=== PATIENT | female | born 2005 | race Caucasian/White ===

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

== ENCOUNTER 2024-05-27 07:08 | Emergency (ER) | payer OTHER ==
[2024-05-27] MEDS ORDERED: IBUPROFEN 400 MG TAB ONE (07:41)
[2024-05-27] MEDS ORDERED: IBUPROFEN 200 MG TAB PO ONE (07:41)
--- NOTE | 2024-05-27 08:01 | ER ---
Nurse's Notes [facility] Name: Linda Caballero Age: 19 yrs Sex: Female : 2005 Arrival Date: 05/27/2024 Time: 07:08 Bed 19 Private MD: Diagnosis: Contusion of right hand;Abrasion of right hand Presentation: 05/27 07:22 Chief complaint: Patient states: R hand pain, bruising and swelling after accidentally ss punching concrete after changing a tire. Injury occurred 3 hours ago. Coronavirus screen: Client denies travel out of the [place] in the last 14 days. Ebola Screen: Patient denies exposure to infectious person. Patient denies travel to an Ebola-affected area in the 21 days before illness onset. Initial Sepsis Screen: Does the patient meet any 2 criteria? No. Patient's initial sepsis screen is negative. Does the patient have a suspected source of infection? No. Patient's initial sepsis screen is negative. Risk Assessment: Do you want to hurt yourself or someone else? Patient reports no desire to harm self or others. Onset of symptoms was May 27, 2024. 07:22 Method Of Arrival: Ambulatory ss 07:22 Acuity: CALISTA 4 ss Historical: - Allergies: 07:24 No Known Allergies; ss - PMHx: 07:24 Reactive arthritis; PTSD; Amplified musculoskeletal pain syndrome; Fibromyalgia; ss Anxiety; - PSHx: 07:24 None; ss - Immunization history:: Client reports receiving the 2nd dose of the Covid vaccine. - Infectious Disease History:: Denies. - Social history:: Smoking status: Patient denies any tobacco usage or history of. - Family history:: not pertinent. Screenin:14 [facility] ED Fall Risk Assessment (Adult) History of falling in the last 3 months, db including since admission No falls in past 3 months (0 pts) Confusion or Disorientation No (0 pts) Intoxicated or Sedated No (0 pts) Impaired Gait No (0 pts) Mobility Assist Device Used No (0 pt) Altered Elimination No (0 pt) Score/Fall Risk Level 0 - 2 = Low Risk Oriented to surroundings, Maintained a safe environment. Abuse screen: Denies threats or abuse. Denies injuries from another. Nutritional screening: On. Nutritional screening: No deficits noted. Tuberculosis screening: No symptoms or risk factors identified. Assessment: 08:12 Reassessment: Patient appears in no apparent distress at this time. Patient and/or db family updated on plan of care and expected duration. Pain level reassessed. Patient is alert, oriented x 3, equal unlabored respirations, skin warm/dry/pink. General: Appears in no apparent distress. comfortable, Behavior is calm, cooperative. Pain: Complains of pain in right hand. Neuro: Level of Consciousness is awake, alert, obeys commands, Oriented to person, place, time, situation. Respiratory: Airway is patent Respiratory effort is even, unlabored, Respiratory pattern is regular, symmetrical. Derm: Wound noted Wound is abrasion to top of right hand. Musculoskeletal: Circulation, motion, and sensation intact. Capillary refill < 3 seconds, Range of motion:. Vital Signs: 07:22 BP 148 / 99; Pulse 80; Resp 16; Temp 98.8(O); Pulse Ox 100% on R/A; Weight 99.79 kg; ss Height 5 ft. 6 in. ; Pain 4/10; 08:00 BP 123 / 85; Pulse 81; Resp 16; Pulse Ox 100% on R/A; db 07:22 Body Mass Index 35.51 (99.79 kg, 167.64 cm) ss 07:22 Pain Scale: Adult ss ED Course: 07:10 Patient arrived in ED. jj6 07:12 Aditya Jonas MD is Attending Physician. [facility] 07:14 Krystle Berry, RN is Primary Nurse. db 07:24 Triage completed. ss 07:24 Arm band placed on left wrist. ss 08:07 Hand Right 3 View XRAY In Process Unspecified. EDMS 08:14 Patient has correct armband on for positive identification. Bed in low position. Call db light in reach. Side rails up X 1. Provided Education on: DISCHARGE AND FOLLOWUP. Pulse ox on. NIBP on. Pillow given. 08:14 No provider procedures requiring assistance completed. Patient did not have IV access db during this emergency room visit. Administered Medications: 07:45 Drug: Ibuprofen PO 600 mg PO once Route: PO; db 08:12 Follow up: Response: No adverse reaction db 08:05 Drug: Gqjgmhqk-Avmpvpmqit-Jzzuhvmgf Topical Ointment 1 application Topical once Route: db Topical; Site: affected area; 08:12 Follow up: Response: No adverse reaction db Medication: 08:14 VIS not applicable for this client. db Outcome: 08:01 Discharge ordered by . yang 08:14 Discharged to home ambulatory, db 08:14 Condition: stable 08:14 Discharge instructions given to patient, Instructed on discharge instructions, follow up and referral plans. Prescriptions given X 1, 08:15 Patient left the ED. db Signatures: Dispatcher [employer] EDAditya Jeter MD MD cha Blanchard, Shelby, RN RN Madeleine Morales Danielle, RN RN db
--- NOTE | 2024-05-27 08:02 | EDPHYS ---
Physician Documentation [facility] Name: Linda Caballero Age: 19 yrs Sex: Female : 2005 Arrival Date: 05/27/2024 Time: 07:08 Bed 19 Private MD: ED Physician Aditya Jonas HPI: 05/27 07:55 This 19 yrs old Female presents to ER via Ambulatory with complaints of Hand yang Injury. 07:55 The patient or guardian reports decreased range of motion, injury, pain. The complaints yang affect the lateral aspect of right hand and medial aspect of right hand. Context: The problem was sustained on a street or driveway. Onset: The symptoms/episode began/occurred just prior to arrival. Modifying factors: The symptoms are alleviated by nothing, the symptoms are aggravated by movement, dependent position. Associated signs and symptoms: The patient has no apparent associated signs or symptoms. Severity of symptoms: At their worst the symptoms were moderate, in the emergency department the symptoms are unchanged. The patient has not experienced similar symptoms in the past. Historical: - Allergies: 07:24 No Known Allergies; ss - PMHx: 07:24 Reactive arthritis; PTSD; Amplified musculoskeletal pain syndrome; Fibromyalgia; ss Anxiety; - PSHx: 07:24 None; ss - Immunization history:: Client reports receiving the 2nd dose of the Covid vaccine. - Infectious Disease History:: Denies. - Social history:: Smoking status: Patient denies any tobacco usage or history of. - Family history:: not pertinent. ROS: 07:55 Constitutional: Negative for fever, chills, and weight loss, Eyes: Negative for injury, yang pain, redness, and discharge, ENT: Negative for injury, pain, and discharge, Neck: Negative for injury, pain, and swelling, Cardiovascular: Negative for chest pain, palpitations, and edema, Respiratory: Negative for shortness of breath, cough, wheezing, and pleuritic chest pain, Abdomen/GI: Negative for abdominal pain, nausea, vomiting, diarrhea, and constipation, Back: Negative for injury and pain, : Negative for injury, bleeding, discharge, and swelling, Skin: Negative for injury, rash, and discoloration, Neuro: Negative for headache, weakness, numbness, tingling, and seizure, Psych: Negative for depression, anxiety, suicide ideation, homicidal ideation, and hallucinations, Allergy/Immunology: Negative for hives, rash, and allergies, Endocrine: Negative for neck swelling, polydipsia, polyuria, polyphagia, and marked weight changes, Hematologic/Lymphatic: Negative for swollen nodes, abnormal bleeding, and unusual bruising, 07:55 MS/extremity: Positive for abrasion, contusion, decreased range of motion, pain, swelling, tenderness, Exam: 07:55 Constitutional: This is a well developed, well nourished patient who is awake, alert, yang and in no acute distress. Head/Face: Normocephalic, atraumatic. Eyes: Pupils equal round and reactive to light, extra-ocular motions intact. Lids and lashes normal. Conjunctiva and sclera are non-icteric and not injected. Cornea within normal limits. Periorbital areas with no swelling, redness, or edema. ENT: Nares patent. No nasal discharge, no septal abnormalities noted. Tympanic membranes are normal and external auditory canals are clear. Oropharynx with no redness, swelling, or masses, exudates, or evidence of obstruction, uvula midline. Mucous membranes moist. Neck: Trachea midline, no thyromegaly or masses palpated, and no cervical lymphadenopathy. Supple, full range of motion without nuchal rigidity, or vertebral point tenderness. No Meningismus. Chest/axilla: Normal chest wall appearance and motion. Nontender with no deformity. No lesions are appreciated. Cardiovascular: Regular rate and rhythm with a normal S1 and S2. No gallops, murmurs, or rubs. Normal PMI, no JVD. No pulse deficits. Respiratory: Lungs have equal breath sounds bilaterally, clear to auscultation and percussion. No rales, rhonchi or wheezes noted. No increased work of breathing, no retractions or nasal flaring. Abdomen/GI: Soft, non-tender, with normal bowel sounds. No distension or tympany. No guarding or rebound. No evidence of tenderness throughout. Back: No spinal tenderness. No costovertebral tenderness. Full range of motion. Skin: Warm, dry with normal turgor. Normal color with no rashes, no lesions, and no evidence of cellulitis. Neuro: Awake and alert, GCS 15, oriented to person, place, time, and situation. Cranial nerves II-XII grossly intact. Motor strength 5/5 in all extremities. Sensory grossly intact. Cerebellar exam normal. Normal gait. Psych: Awake, alert, with orientation to person, place and time. Behavior, mood, and affect are within normal limits. 07:55 Musculoskeletal/extremity: ROM: limited active range of motion, limited passive range of motion, limited active range of motion due to pain, limited passive range of motion due to pain, in the right hand, Circulation is intact in all extremities. Sensation intact. Compartment Syndrome exam of affected extremity: is normal. Vital Signs: 07:22 BP 148 / 99; Pulse 80; Resp 16; Temp 98.8(O); Pulse Ox 100% on R/A; Weight 99.79 kg; ss Height 5 ft. 6 in. ; Pain 4/10; 08:00 BP 123 / 85; Pulse 81; Resp 16; Pulse Ox 100% on R/A; db 07:22 Body Mass Index 35.51 (99.79 kg, 167.64 cm) ss 07:22 Pain Scale: Adult ss MDM: 07:12 Medical Screening Exam initiated yang 07:59 Differential diagnosis: dislocation, closed fracture, contusion, abrasion, tendonitis. [facility] Data reviewed: vital signs, nurses notes, radiologic studies, plain films. Consideration of Admission/Observation Escalation of care including admission/observation considered. I considered the following discharge prescriptions or medication management in the emergency department Medications were administered in the Emergency Department. See MAR. Independent interpretation of the following test(s) in the Emergency Department X-Ray: My interpretation is NO FX. Care significantly affected by the following chronic conditions: ANXIETY, PTSD, FIBROMYALGIA. 05/27 07:24 Order name: Hand Right 3 View XRAY [facility] 05/27 07:24 Order name: Ice pack; Complete Time: 07:34 [facility] 05/27 07:55 Order name: Wound Care; Complete Time: 08:12 [facility] Administered Medications: 07:45 Drug: Ibuprofen PO 600 mg PO once Route: PO; db 08:12 Follow up: Response: No adverse reaction db 08:05 Drug: Lbkqyrfc-Qpdnaocnaw-Btvtdpaxp Topical Ointment 1 application Topical once Route: db Topical; Site: affected area; 08:12 Follow up: Response: No adverse reaction db Disposition Summary: 05/27/24 08:01 Discharge Ordered Notes: Location: Home yang Problem: new yang Symptoms: have improved yang Condition: Stable yang Diagnosis - Contusion of right hand yang - Abrasion of right hand yang Followup: yang - With: Private Physician - When: 2 - 3 days - Reason: Recheck today's complaints, Continuance of care, Re-evaluation by your physician Discharge Instructions: - Discharge Summary Sheet yang - Abrasion yang - Hand Contusion yang - Abrasion, Cpru-bz-Midj yang - Hand Pain yang Forms: - Medication Reconciliation Form yang - Antibiotic Education yang - Prescription Opioid Use yang - Patient Portal Instructions yang - Leadership Thank You Letter yang Prescriptions: - Ibuprofen 600 mg Oral tablet - take 1 tablet ORAL route every 6 hours As needed take with food; 20 tablet; yang Refills: 0, Product Selection Permitted Signatures: Dispatcher [employer] EDMS Aditya Jonas MD MD cha Blanchard, Shelby RN RN ss Krystle Berry RN RN db Corrections: (The following items were deleted from the chart) 07:24 07:24 Hand Right 3 View+RAD.RAD.BRZ ordered. EDMS EDMS
--- NOTE | 2024-05-27 08:09 | RAD REPORT ---
EXAM: Hand Right 3 View HISTORY: PAIN COMPARISON: None FINDINGS: Bones: No acute fracture identified. Alignment:No significant malalignment. Degenerative changes:None significant. Other: n/a IMPRESSION: No evidence of acute osseous abnormality involving the imaged hand.
[2024-05-27 10:33] VITALS: TEMP 98.8; O2SAT 100
[2024-05-27 10:34] VITALS: BP 123/85
== END 2024-05-27 08:15 | disposition home or self-care (01) ==
LOC: ER 07:08
DX: S60.511A Abrasion of right hand, initial encounter (principal)
CPT/HCPCS: 99283

== ENCOUNTER 2024-08-09 11:47 | Emergency (ER) | payer OTHER ==
[2024-08-09] MEDS ORDERED: KETOROLAC 30 MG/ML INJ ONE (12:28)
[2024-08-09] MEDS ORDERED: HYDROCODONE/APAP 10/325 TAB ONE (12:28)
--- NOTE | 2024-08-09 12:39 | RAD REPORT ---
Exam:Shoulder Left 2+ Views HISTORY: Left shoulder pain FINDINGS: No fracture or dislocation seen. No bone or joint abnormality displayed. If the patient's symptoms persist follow-up x-ray in one month would be recommended
--- NOTE | 2024-08-09 13:11 | ER ---
Nurse's Notes [facility] Name: Linda Caballero Age: 19 yrs Sex: Female : 2005 Arrival Date: 08/09/2024 Time: 11:47 Bed 12 Private MD: Diagnosis: Subluxation of left shoulder Presentation: 08/09 12:11 Chief complaint: Patient states: Left shoulder pain x 2 hours while working out. jl7 Coronavirus screen: At this time, the client does not indicate any symptoms associated with coronavirus-19. Ebola Screen: No symptoms or risks identified at this time. Initial Sepsis Screen: Does the patient meet any 2 criteria? No. Patient's initial sepsis screen is negative. Does the patient have a suspected source of infection? No. Patient's initial sepsis screen is negative. Risk Assessment: Do you want to hurt yourself or someone else? Patient reports no desire to harm self or others. Onset of symptoms was August 09, 2024 at 10:00. 12:11 Method Of Arrival: Ambulatory jl7 12:11 Acuity: CALISTA 4 jl7 Historical: - Allergies: 12:12 No Known Allergies; jl7 - PMHx: 12:12 Amplified musculoskeletal pain syndrome; Anxiety; Fibromyalgia; PTSD; Reactive jl7 arthritis; - Immunization history:: Adult Immunizations up to date. - Infectious Disease History:: Denies. - Social history:: Smoking status: Reported history of juuling and/or vaping. - Family history:: not pertinent. Screenin:21 [facility] ED Fall Risk Assessment (Adult) History of falling in the last 3 months, jl7 including since admission No falls in past 3 months (0 pts) Confusion or Disorientation No (0 pts) Intoxicated or Sedated No (0 pts) Impaired Gait No (0 pts) Mobility Assist Device Used No (0 pt) Altered Elimination No (0 pt) Score/Fall Risk Level 0 - 2 = Low Risk Oriented to surroundings, Maintained a safe environment. Abuse screen: Denies threats or abuse. Denies injuries from another. Nutritional screening: No deficits noted. Tuberculosis screening: No symptoms or risk factors identified. Vital Signs: 12:11 BP 156 / 102; Pulse 107; Resp 18; Temp 98.1; Pulse Ox 100% ; Weight 98.88 kg; Height 5 jl7 ft. 7 in. ; Pain 10/10; 13:21 BP 144 / 97; Pulse 80; Resp 17; Pulse Ox 100% ; Pain 2/10; jl7 12:11 Body Mass Index 34.14 (98.88 kg, 170.18 cm) jl7 12:11 Pain Scale: Adult jl7 13:21 Pain Scale: Adult jl7 ED Course: 11:48 Patient arrived in ED. mr 11:52 Srinivasa Olson MD is Attending Physician. rt 12:12 Triage completed. jl7 12:22 Shoulder Left (2 View) XRAY In Process Unspecified. EDMS 12:35 Marysol Russo RN is Primary Nurse. jl7 13:09 Luis Alberto Macias MD is Referral Physician. rt 13:21 Patient has correct armband on for positive identification. Provided Education on: jl7 discharge. 13:21 No provider procedures requiring assistance completed. Patient did not have IV access jl7 during this emergency room visit. 13:21 Sling applied to left arm. jl7 Administered Medications: 12:35 Drug: Ketorolac IM 30 mg IM once Route: IM; Site: right deltoid; jl7 13:21 Follow up: Response: No adverse reaction; Pain is decreased jl7 12:35 Drug: [place] PO 10 mg-325 mg 1 tabs PO once Route: PO; jl7 13:21 Follow up: Response: No adverse reaction; Pain is decreased jl7 Medication: 13:21 VIS not applicable for this client. jl7 Outcome: 13:10 Discharge ordered by . rt 13:21 Discharged to home ambulatory, jl7 13:21 Condition: stable 13:21 Discharge instructions given to patient, Instructed on discharge instructions, follow up and referral plans. Demonstrated understanding of instructions, follow-up care, 13:22 Patient left the ED. jl7 Signatures: Dispatcher [employer] EDVT Chelsea Mccormick, Reg Reg mr Marysol Russo, ANKITA RN jl7 Srinivasa Olson MD MD rt
--- NOTE | 2024-08-09 13:11 | EDPHYS ---
Physician Documentation [facility] Name: Linda Caballero Age: 19 yrs Sex: Female : 2005 Arrival Date: 08/09/2024 Time: 11:47 Bed 12 Private MD: ED Physician Srinivasa Olson HPI: 08/09 15:00 This 19 yrs old Female presents to ER via Ambulatory with complaints of Shoulder Injury.rt 15:00 Patient presents to the ED with a left shoulder pain. The patient states that she rt subluxes her left shoulder for the past couple months. States that she was running, developed worsening pains but she does not feel like it is out of place. Denies other acute complaints at this time, symptoms are moderate in severity, no other aggravating or alleviating factors.. Historical: - Allergies: 12:12 No Known Allergies; jl7 - PMHx: 12:12 Amplified musculoskeletal pain syndrome; Anxiety; Fibromyalgia; PTSD; Reactive jl7 arthritis; - Immunization history:: Adult Immunizations up to date. - Infectious Disease History:: Denies. - Social history:: Smoking status: Reported history of juuling and/or vaping. - Family history:: not pertinent. ROS: 15:00 Constitutional: Negative for fever, chills, and weight loss, Cardiovascular: Negative rt for chest pain, palpitations, and edema, Respiratory: Negative for shortness of breath, cough, wheezing, and pleuritic chest pain, Abdomen/GI: Negative for abdominal pain, nausea, vomiting, diarrhea, and constipation, 15:00 MS/extremity: Positive for pain, Negative for deformity, 15:00 Psych: Positive for Exam: 15:00 Constitutional: This is a well developed, well nourished patient who is awake, alert, rt and in no acute distress. Head/Face: Normocephalic, atraumatic. 15:00 Musculoskeletal/extremity: Tenderness diffusely on the left shoulder, no appreciable swelling, skin is intact, pulses, motor, sensation are intact. Vital Signs: 12:11 BP 156 / 102; Pulse 107; Resp 18; Temp 98.1; Pulse Ox 100% ; Weight 98.88 kg; Height 5 jl7 ft. 7 in. ; Pain 10/10; 13:21 BP 144 / 97; Pulse 80; Resp 17; Pulse Ox 100% ; Pain 2/10; jl7 12:11 Body Mass Index 34.14 (98.88 kg, 170.18 cm) jl7 12:11 Pain Scale: Adult jl7 13:21 Pain Scale: Adult jl7 MDM: 12:09 Medical Screening Exam initiated rt 15:00 Differential diagnosis: Dislocation, subluxation, fracture. Data reviewed: vital signs, rt nurses notes, radiologic studies. Independent interpretation of the following test(s) in the Emergency Department X-Ray: My interpretation is No dislocation seen on interpretation of x-ray images. Counseling: I had a detailed discussion with the patient and/or guardian regarding the historical points, exam findings, and any diagnostic results supporting the discharge/admit diagnosis, radiology results, the need for outpatient follow up. Response to treatment: the patient's symptoms have markedly improved after treatment. 08/09 12:09 Order name: Shoulder Left (2 View) XRAY; Complete Time: 12:42 rt 08/09 12:09 Order name: Sling; Complete Time: 12:35 rt Administered Medications: 12:35 Drug: Ketorolac IM 30 mg IM once Route: IM; Site: right deltoid; jl7 13:21 Follow up: Response: No adverse reaction; Pain is decreased jl7 12:35 Drug: [place] PO 10 mg-325 mg 1 tabs PO once Route: PO; jl7 13:21 Follow up: Response: No adverse reaction; Pain is decreased jl7 Disposition Summary: 08/09/24 13:10 Discharge Ordered Notes: Location: Home rt Problem: new rt Symptoms: have improved rt Condition: Stable rt Diagnosis - Subluxation of left shoulder rt Followup: rt - With: Luis Alberto Macias MD - When: 2 - 3 days - Reason: Discharge Instructions: - Discharge Summary Sheet rt - Shoulder Pain rt Forms: - Work release form jl7 - Medication Reconciliation Form rt - Antibiotic Education rt - Prescription Opioid Use rt - Patient Portal Instructions rt - Leadership Thank You Letter rt Signatures: Dispatcher [employer] Marysol Lubin RN RN bj7 Srinivasa Olson MD MD rt Corrections: (The following items were deleted from the chart) 12:10 12:10 Shoulder Left 2 View+RAD.RAD.BRZ ordered. ED ED
[2024-08-09 13:51] VITALS: TEMP 98.1; O2SAT 100
[2024-08-09 13:53] VITALS: BP 144/97
== END 2024-08-09 13:22 | disposition home or self-care (01) ==
LOC: ER 11:47
DX: S43.002A Unspecified subluxation of left shoulder joint, initial encounter (principal)

== ENCOUNTER 2024-10-31 06:57 | Day surgery (SDC) | payer OTHER ==
[2024-10-30 12:31] LABS: Absolute Eosinophils 0.2 K/uL (0-0.5); Absolute Lymphocytes (CBC) 4.8 K/uL (0.7-4.9); Absolute Monocytes 0.8 K/uL (0.1-1.3); Absolute Neutrophil 5.6 K/uL (1.8-8.0); Basophils % 0.4 % (0-1.3); Eosinophils % 1.4 % (0-4.4); Hematocrit 41.4 % (36.0-45.0); Hemoglobin 14.1 g/dL (12.0-15.0); Lymphocytes % 42.4 % (15.3-44.8); MCH 29.2 pg (27.0-35.0); MCHC 34.1 g/dL (32.0-36.0); MCV 85.8 fL (80-100); MPV 6.8 fL (7.6-11.3); Monocytes % 6.7 % (3.3-12.3); Neutrophils % 49.1 % (41.7-73.7); Platelets 419 thou/uL (152-406); RBC Red Blood Cell Count 4.83 M/uL (3.86-4.86); Red Cell Distribution Width 14.9 % (12.1-15.2)
[2024-10-30 12:46] LABS: Anion Gap 8.5 mEq/L (5.0-15.0); Potassium 3.5 mEq/L (3.5-5.1)
[2024-10-31] MEDS: Ringers Lactate 1,000 ML IV ONE (07:30)
[2024-10-31] MEDS ORDERED: LIDOCAINE 1% MPF 5 ML VIAL ONE ×2 (07:36→08:32)
[2024-10-31] MEDS ORDERED: MIDAZOLAM HCL 2 MG/2 ML INJ ONE (07:36)
[2024-10-31] MEDS ORDERED: FENTANYL CITR 100 MCG/2 ML ONE (07:37)
[2024-10-31] MEDS ORDERED: EPINEPHRINE 1 MG/ML VIAL ONE (07:37)
[2024-10-31] MEDS ORDERED: dexAMETHasone 4 MG/ML VIAL ONE (07:37)
[2024-10-31] MEDS: CEFAZOLIN SODIUM 1 GM/VIAL ONE (08:14)
[2024-10-31] MEDS ORDERED: propofoL 200 MG/20 ML VIAL IV ONE (08:32)
[2024-10-31] MEDS ORDERED: ONDANSETRON 4 MG/2 ML VIAL ONE (08:32)
[2024-10-31] MEDS ORDERED: ROCURONIUM 50 MG/5 ML VIAL IV ONE (08:32)
[2024-10-31] MEDS ORDERED: Ringers Lactate 1,000 ML IV ONE (11:29)
[2024-10-31] MEDS: MORPHINE 2 MG/ML SYR ONE (11:56)
[2024-10-31] MEDS: HYDROCODONE/APAP 7.5/325 MG TAB ONE (12:22)
[2024-10-31 12:40] VITALS: BP 128/74; O2SAT 96
[2024-10-31 13:50] VITALS: TEMP 97
--- NOTE | 2024-10-31 14:03 | OP ---
Date of Procedure: 10/31/2024 Surgeon: Luis Alberto Macias MD Preoperative Diagnosis: Left shoulder multidirectional instability. Postoperative Diagnosis: Left shoulder multidirectional instability. Procedure: Left shoulder open capsular shift. Estimated Blood Loss: 20 cc. Complications: There were no complications. Specimens: No pathology specimens sent. Indications For Operation: Ms. 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 At maricarmen t time, she had a stint in physical therapy as well as other diagnostic therapeutic measures. Elizabeth harden, these were unhelpful with regard to her persistent chronic debilitating symptoms. She therefore u nderwent a capsular shift performed by me 3 years ago and apparently had an excellent result, and she was in her normal state of health until she started complaining that her left shoulder was doing the same thing her right was and essentially could feel it subluxing out of socket. This persisted desp ite injection and extensive physical therapy and conservative measures. Also has an MRI which demons trates no other obvious severe pathology and the patient at this time request the identical procedure done on her left as she has had previously done on her right and it does appear that she has the jenny e indications. Risks, benefits, and alternatives of this been discussed with her including that this is a soft tissue procedure that tension can be difficult. Also possibility may have continued insta bility or overtightening as well as the risks to function of shoulder or of the nerve. She says she understands everything as presented as well as others that are presented, and agrees to proceed. Description Of Procedure: Patient was taken to the operating room, placed in supine position. Gene ral anesthesia was easily obtained by Anesthesia staff. Following this, she was then placed in a derrick chair position, slightly more relaxed. After this, coracoid was palpated and an incision line was made within the crease from the coracoid down to near the axilla. It was taken down carefully throu gh skin only. Meticulous hemostasis being maintained using Bovie electrocautery as the deeper struct ures were encountered. Scissors were used to develop a working setting and the cephalic vein was eas marcel seen and palpated. It was then retracted along with the deltoid laterally with the pectoralis tr ansition medialward. After this, the coracoid was used as a lighthouse as the conjoined tendon was i dentified. This was then exposed and conjoined tendon was then moved medially as well protecting the musculocutaneous nerve. After this, the subscapularis was identified by internal and external rotat ion of the shoulder. Finger was swept along the subscapularis to allow for palpation of the axillary nerve which was protected very carefully at all times. Also, the vascular structure at the most inf erior third of the subscapularis was identified and a transverse incision was then made beginning toby roximately 1.5 cm from the insertion of the subscapularis with a vertically or with a more vertical i ncision of the subscapularis and it was approximately at the midpoint of this incision which allowed for an inverted T with protection of the vascular structures inferiorly. This was then developed sup eriorly until the subscap in this T region was used to expose the underlying capsule. It was obvious ly quite adherent. Care was taken not to penetrate or harm the capsule as this was removed after thi s and the capsule was identified, although still quite adherent to the subscap. It was then freed up with the more inferior portion of the subscap being removed from the capsule using sharp dissection, which allowed for exposure of the capsule. The capsule itself did appear to be quite thin and porti ons of subscap were used to help make this more of a significant structure as we know that we are goi ng to shift and repair it. After this, the medial limb was identified as a vertical incision was mad e at the anterior portion of the capsule. This was taken down very careful to protect the underlying structures and as the inferior structures were protected as well, this proceeds from approximately 1 2 o'clock to 6 o'clock position allowing free leaflet. After this, the lateral leaflet was also tagg ed and identified and the medial leaflet was then placed into the lateral leaflet with the medial gayatri flet being raised and lateralized and these sutures once placed in series are then tied in a horizont al mattress type fashion with the shoulder in approximately 20 degrees of external rotation. After t his was irrigated, it was gently moved. It was found that the capsule does move in conjunction or wi th the shoulder demonstrating adherence. After this, attention was turned back to the subscapularis and the vertical incision of the subscapularis was then tied back using Ethibond sutures end-to-end. This was augmented by sutures in the horizontal portion to close down this gap. These were also tie d with the shoulder at 20 degrees external rotation. However, there was not excessive tension on the subscapularis, at this point. After this, the wound was irrigated and skin was closed using Vicryl sutures followed by maisha. The patient was placed in Aquacel dressing, awakened, and taken to leonel very room in a sling. /ANGELITO Voice ID: [id number] Report ID: [id number]
[2024-10-31 21:09] LABS: Urine Specific Gravity/Preg 1.025 (1.005-1.030)
== END 2024-10-31 13:40 | disposition home or self-care (01) ==
LOC: OR 06:57
PROVIDERS: ATTEND Orthopaedic Surgery
PROC: 0RQK0ZZ Repair Left Shoulder Joint, Open Approach (ICD-10-PCS; principal; 2024-10-31 09:00)
DX: M25.312 Other instability, left shoulder (principal); F41.9 Anxiety disorder, unspecified; F32.A Depression, unspecified
CPT/HCPCS: 85025; 80048; 36415; 81025; 23466; J2704; J1100; J2003 ×2; J2250; J3010; J2270; J0171; J2405; J7120 ×2; J0690